=== PATIENT | male | born 1960 | race Caucasian/White ===

== ENCOUNTER 2017-09-22 16:15 | Emergency (ER) | payer OTHER ==
[~2017-09-22] VITALS: Ht 190.5 cm; Wt 97.5 kg
[~2017-09-22 16:15] MED LIST: Bactrim Ds Tab1 EACH PO; Bactroban22 GM TOP; CEPH500 PO; Cipro500 MG PO; Cleocin HCl150 MG PO; Cleocin HCl300 MG PO; Flagyl500 MG PO; GLIM2 PO; GLIM4 PO; METF500 PO; MUPI2TO TOP; Norco 5-325 Ta1 EACH PO; Percocet 5-3251 EACH PO; Zithromax250 MG PO; Zofran4 MG PO
[2017-09-22] MEDS ORDERED: Keflex500 MG PO (18:31)
[2017-09-22] MEDS ORDERED: Bactrim Ds Tab1 EACH PO (18:31)
== END 2017-09-22 18:35 | disposition home or self-care (01) ==
LOC: ER 16:15
DX: L02.31 Cutaneous abscess of buttock (principal); Z88.0 Allergy status to penicillin; Z79.84 Long term (current) use of oral hypoglycemic drugs; Z79.899 Other long term (current) drug therapy; E11.40 Type 2 diabetes mellitus with diabetic neuropathy, unspecified; F17.200 Nicotine dependence, unspecified, uncomplicated
CPT/HCPCS: 10061; 99283

== ENCOUNTER 2017-10-19 15:54 | Emergency (ER) | payer OTHER ==
[~2017-10-19] VITALS: Ht 190.5 cm; Wt 97.5 kg
[~2017-10-19 15:54] MED LIST changes: +Keflex500 MG PO
[2017-10-19] MEDS ORDERED: Valium5 MG PO (16:55)
== END 2017-10-19 17:00 | disposition home or self-care (01) ==
LOC: ER 15:54
DX: M62.830 Muscle spasm of back (principal); Z88.0 Allergy status to penicillin; Z88.8 Allergy status to other drugs, medicaments and biological substances; Z79.84 Long term (current) use of oral hypoglycemic drugs; E11.40 Type 2 diabetes mellitus with diabetic neuropathy, unspecified; F17.210 Nicotine dependence, cigarettes, uncomplicated
CPT/HCPCS: 99283

== ENCOUNTER → 2019-10-04 | Outpatient (CLI) | payer MEDICAID ==
[~2019-10-04] MED LIST changes: +Valium5 MG PO
[2019-10-04 18:36] LABS: Alanine Aminotransfer (ALT/SGP 10 U/L (12-78); Albumin, Blood 3.9 g/dL (3.4-5.0); Albumin/Globulin Ratio 1.1 (0.8-1.8); Alk Phos 52 U/L (40-126); Anion Gap 7 mmol/L (6-16); Aspartate Aminotrans (AST/SGOT 13 U/L (12-37); Bilirubin, Total 0.6 mg/dL (0.1-1.0); Blood Urea Nitrogen 5 mg/dL (8-24); Bun/Creatinine Ratio 6.3 (12.0-20.0); CO2, Blood 26 mmol/L (21-32); Calcium, Blood 8.8 mg/dL (8.5-10.1); Chloride, Blood 105 mmol/L (98-108); Globulin, Blood 3.7 g/dL (2.2-4.0); Glomerular Filtration Rate >60 (60-); Glucose, Blood 199 mg/dL (70-99); Sodium, Blood 138 mmol/L (136-145); Total Protein, Blood 7.6 g/dL (6.4-8.2)
== END | disposition home or self-care (01) ==
LOC: LAB EV 18:20 → LAB SHORT 18:20
PROVIDERS: Physician Assistant
DX: E11.65 Type 2 diabetes mellitus with hyperglycemia (principal)
CPT/HCPCS: 80053; 83036

== ENCOUNTER 2019-12-22 00:49 | Emergency (ER) | payer OTHER ==
[~2019-12-22] VITALS: Ht 188 cm; Wt 86.2 kg
[2019-12-22 02:16] LABS: BASOPHILS ABSOLUTE AUTO 0.06 K/mm3 (0.00-0.23); BASOPHILS PERCENT AUTO 1 % (0-2); EOSINOPHILS ABSOLUTE AUTO 0.09 K/mm3 (0.00-0.68); EOSINOPHILS PERCENT AUTO 1 % (0-6); Hemoglobin 20.5 g/dL (13.5-17.5); IMMATURE GRAN ABSOLUTE AUTO 0.03 K/mm3 (0.00-0.10); IMMATURE GRAN PERCENT AUTO 0 % (0-1); LYMPHOCYTES ABSOLUTE AUTO 1.56 K/mm3 (0.84-5.20); LYMPHOCYTES PERCENT AUTO 16 % (21-46); MONOCYTES ABSOLUTE AUTO 1.02 K/mm3 (0.16-1.47); MONOCYTES PERCENT AUTO 10 % (4-13); Mean Corpuscular HGB Conc 32.8 g/dL (31.5-36.5); Mean Corpuscular Volume 98 fL (80-100); NEUTROPHILS ABSOLUTE AUTO 7.07 K/mm3 (1.96-9.15); NEUTROPHILS PERCENT AUTO 72 % (41-73); RDW Coefficient Variation 13.2 % (11.7-14.2); RDW Standard Deviation 47.8 fL (35.1-46.3); White Blood Cell Count 9.83 K/mm3 (4.00-11.30)
[2019-12-22 02:17] LABS: Hematocrit 62.5 % (37.0-53.0); Mean Platelet Volume 12.4 fL (9.1-12.4); Platelet Count 104 K/mm3 (150-400)
[2019-12-22 02:27] LABS: Alanine Aminotransfer (ALT/SGP 13 U/L (12-78); Albumin, Blood 3.7 g/dL (3.4-5.0); Albumin/Globulin Ratio 0.9 (0.8-1.8); Alk Phos 56 U/L (50-136); Anion Gap 7 mmol/L (6-16); Aspartate Aminotrans (AST/SGOT 18 U/L (12-37); Bilirubin, Total 1.3 mg/dL (0.1-1.0); Blood Urea Nitrogen 7 mg/dL (8-24); Bun/Creatinine Ratio 9.9 (12.0-20.0); CO2, Blood 29 mmol/L (21-32); Calcium, Blood 9.1 mg/dL (8.5-10.1); Chloride, Blood 103 mmol/L (98-108); Creatinine, Blood 0.71 mg/dL (0.60-1.20); Globulin, Blood 4.1 g/dL (2.2-4.0); Glomerular Filtration Rate >60 (60-); Glucose, Blood 109 mg/dL (70-99); Magnesium, Blood 2.1 mg/dL (1.6-2.4); Potassium, Blood 3.9 mmol/L (3.5-5.5); Sodium, Blood 139 mmol/L (136-145); Total Protein, Blood 7.8 g/dL (6.4-8.2)
[2019-12-22] MEDS ORDERED: Cipro500 MG PO (03:26)
[2019-12-22] MEDS ORDERED: Flagyl500 MG PO (03:26)
== END 2019-12-22 04:22 | disposition home or self-care (01) ==
LOC: ER 00:49
PROVIDERS: Emergency Medicine
DX: K57.32 Diverticulitis of large intestine without perforation or abscess without bleeding (principal); K92.1 Melena; E11.40 Type 2 diabetes mellitus with diabetic neuropathy, unspecified; F17.210 Nicotine dependence, cigarettes, uncomplicated; Z79.84 Long term (current) use of oral hypoglycemic drugs
CPT/HCPCS: 36415; 74176; 80053; 83690; 83735; 85025; 96360; 99284-25; A9270; A9270-GY; J7030

== ENCOUNTER 2020-01-08 01:13 | Emergency (ER) | payer OTHER ==
[~2020-01-08] VITALS: Ht 188 cm; Wt 88.5 kg
[2020-01-08 02:40] LABS: BASOPHILS ABSOLUTE AUTO 0.05 K/mm3 (0.00-0.23); BASOPHILS PERCENT AUTO 1 % (0-2); EOSINOPHILS ABSOLUTE AUTO 0.05 K/mm3 (0.00-0.68); EOSINOPHILS PERCENT AUTO 1 % (0-6); Hemoglobin 19.6 g/dL (13.5-17.5); IMMATURE GRAN ABSOLUTE AUTO 0.01 K/mm3 (0.00-0.10); IMMATURE GRAN PERCENT AUTO 0 % (0-1); LYMPHOCYTES PERCENT AUTO 14 % (21-46); MONOCYTES ABSOLUTE AUTO 0.69 K/mm3 (0.16-1.47); MONOCYTES PERCENT AUTO 12 % (4-13); Mean Corpuscular HGB 31.9 pg (26.0-34.0); Mean Corpuscular HGB Conc 32.9 g/dL (31.5-36.5); Mean Corpuscular Volume 97 fL (80-100); NEUTROPHILS ABSOLUTE AUTO 3.97 K/mm3 (1.96-9.15); NEUTROPHILS PERCENT AUTO 71 % (41-73); Platelet Count 152 K/mm3 (150-400); RDW Coefficient Variation 12.4 % (11.7-14.2); RDW Standard Deviation 44.5 fL (35.1-46.3); Red Blood Cell Count 6.14 M/mm3 (4.30-5.90); White Blood Cell Count 5.57 K/mm3 (4.00-11.30)
[2020-01-08 02:42] LABS: Hematocrit 59.6 % (37.0-53.0)
[2020-01-08 03:00] LABS: Alanine Aminotransfer (ALT/SGP 19 U/L (12-78); Albumin, Blood 3.7 g/dL (3.4-5.0); Albumin/Globulin Ratio 0.8 (0.8-1.8); Alk Phos 56 U/L (50-136); Anion Gap 6 mmol/L (6-16); Aspartate Aminotrans (AST/SGOT 22 U/L (12-37); Bilirubin, Total 0.5 mg/dL (0.1-1.0); Blood Urea Nitrogen 8 mg/dL (8-24); Bun/Creatinine Ratio 11.1 (12.0-20.0); CO2, Blood 27 mmol/L (21-32); Calcium, Blood 8.8 mg/dL (8.5-10.1); Chloride, Blood 104 mmol/L (98-108); Creatinine, Blood 0.72 mg/dL (0.60-1.20); Globulin, Blood 4.5 g/dL (2.2-4.0); Glomerular Filtration Rate >60 (60-); Glucose, Blood 212 mg/dL (70-99); Potassium, Blood 4.3 mmol/L (3.5-5.5); Sodium, Blood 137 mmol/L (136-145); Total Protein, Blood 8.2 g/dL (6.4-8.2)
[2020-01-08] MEDS ORDERED: Cipro500 MG PO (03:48)
== END 2020-01-08 03:59 | disposition home or self-care (01) ==
LOC: ER 01:13
PROVIDERS: Emergency Medicine
DX: N30.90 Cystitis, unspecified without hematuria (principal); E11.40 Type 2 diabetes mellitus with diabetic neuropathy, unspecified; F17.210 Nicotine dependence, cigarettes, uncomplicated; Z88.0 Allergy status to penicillin; Z79.84 Long term (current) use of oral hypoglycemic drugs; Z79.2 Long term (current) use of antibiotics; Z79.899 Other long term (current) drug therapy
CPT/HCPCS: 74176; 80053; 85025; 86850; 86900; 86901; 96361; 96374; 96375; 99285-25; J2405; J3010; J7030

== ENCOUNTER 2020-01-30 00:07 | Emergency (ER) | payer OTHER ==
[~2020-01-30] VITALS: Ht 188 cm; Wt 79.4 kg
[2020-01-30 00:59] LABS: BASOPHILS ABSOLUTE AUTO 0.03 K/mm3 (0.00-0.23); BASOPHILS PERCENT AUTO 0 % (0-2); EOSINOPHILS ABSOLUTE AUTO 0.16 K/mm3 (0.00-0.68); EOSINOPHILS PERCENT AUTO 2 % (0-6); Hematocrit 60.4 % (37.0-53.0); Hemoglobin 19.8 g/dL (13.5-17.5); IMMATURE GRAN ABSOLUTE AUTO 0.02 K/mm3 (0.00-0.10); IMMATURE GRAN PERCENT AUTO 0 % (0-1); LYMPHOCYTES ABSOLUTE AUTO 1.43 K/mm3 (0.84-5.20); LYMPHOCYTES PERCENT AUTO 21 % (21-46); MONOCYTES ABSOLUTE AUTO 0.97 K/mm3 (0.16-1.47); MONOCYTES PERCENT AUTO 14 % (4-13); Mean Corpuscular HGB 31.3 pg (26.0-34.0); Mean Corpuscular HGB Conc 32.8 g/dL (31.5-36.5); Mean Corpuscular Volume 96 fL (80-100); Mean Platelet Volume 11.2 fL (9.1-12.4); NEUTROPHILS ABSOLUTE AUTO 4.33 K/mm3 (1.96-9.15); NEUTROPHILS PERCENT AUTO 62 % (41-73); Platelet Count 158 K/mm3 (150-400); RDW Standard Deviation 46.3 fL (35.1-46.3); Red Blood Cell Count 6.32 M/mm3 (4.30-5.90); White Blood Cell Count 6.94 K/mm3 (4.00-11.30)
[2020-01-30 01:14] LABS: Alanine Aminotransfer (ALT/SGP 11 U/L (12-78); Albumin, Blood 3.2 g/dL (3.4-5.0); Albumin/Globulin Ratio 0.7 (0.8-1.8); Alk Phos 55 U/L (50-136); Anion Gap 3 mmol/L (6-16); Aspartate Aminotrans (AST/SGOT 13 U/L (12-37); Bilirubin, Total 0.6 mg/dL (0.1-1.0); Blood Urea Nitrogen 6 mg/dL (8-24); Bun/Creatinine Ratio 8.5 (12.0-20.0); CO2, Blood 30 mmol/L (21-32); Calcium, Blood 8.9 mg/dL (8.5-10.1); Chloride, Blood 106 mmol/L (98-108); Creatinine, Blood 0.71 mg/dL (0.60-1.20); Globulin, Blood 4.5 g/dL (2.2-4.0); Glomerular Filtration Rate >60 (60-); Glucose, Blood 217 mg/dL (70-99); Potassium, Blood 4.2 mmol/L (3.5-5.5); Sodium, Blood 139 mmol/L (136-145); Total Protein, Blood 7.7 g/dL (6.4-8.2)
[2020-01-30] MEDS ORDERED: Cipro500 MG PO (01:59)
[2020-01-30] MEDS ORDERED: Flagyl500 MG PO (01:59)
[2020-01-30 02:02] LABS: Source, Urine Clean Catch
[2020-01-30 02:05] LABS: Appearance, Urine Clear (Clear); Bilirubin, Urine Neg (Neg); Blood, Urine 1+ (Neg); Color, Urine Amber (P-Yellow); Glucose Qualitative, Urine Neg (Neg); Ketones, Urine Neg (Neg); Leukocyte Esterase, Urine 1+ (Neg); Nitrite, Urine Neg (Neg); Protein, Urine 1+ (Neg); Specific Gravity, Urine 1.015 (1.003-1.022); Urobilinogen, Urine NORM (Normal); pH, Urine 6.5 (5.0-8.0)
[2020-01-30 02:11] LABS: Bacteria Mod /hpf; Red Blood Cells, Urine 0-2 /hpf (0-2); Squamous Epithelial Cells Rare /hpf (Few); White Blood Cells, Urine 0-2 /hpf (0-5)
== END 2020-01-30 02:14 | disposition home or self-care (01) ==
LOC: ER 00:07
PROVIDERS: Emergency Medicine
DX: K57.92 Diverticulitis of intestine, part unspecified, without perforation or abscess without bleeding (principal); E11.40 Type 2 diabetes mellitus with diabetic neuropathy, unspecified; F17.210 Nicotine dependence, cigarettes, uncomplicated; Z88.0 Allergy status to penicillin; Z79.84 Long term (current) use of oral hypoglycemic drugs
CPT/HCPCS: 36415; 80053; 81001; 83690; 85025; 87086; 93005; 93010; 96374; 99284-25; A9270-GY; J2405

== ENCOUNTER 2020-02-10 00:51 | Emergency (ER) | payer OTHER ==
[~2020-02-10] VITALS: Ht 188 cm; Wt 81.7 kg
[2020-02-10] MEDS ORDERED: Bactrim Ds Tab1 EACH PO (02:32)
[2020-02-13] MEDS ORDERED: Vibramycin100 MG PO (02:45)
== END 2020-02-10 02:42 | disposition home or self-care (01) ==
LOC: ER 00:51
DX: L03.317 Cellulitis of buttock (principal); Z88.0 Allergy status to penicillin; Z79.84 Long term (current) use of oral hypoglycemic drugs; Z79.899 Other long term (current) drug therapy; E11.40 Type 2 diabetes mellitus with diabetic neuropathy, unspecified; I10 Essential (primary) hypertension; F17.210 Nicotine dependence, cigarettes, uncomplicated
CPT/HCPCS: 99282; A9270-GY

== ENCOUNTER → 2020-02-15 | Outpatient (CLI) | payer OTHER ==
[~2020-02-15] MED LIST changes: +GLIM4; +ONDA4ODT MM; +Vibramycin100 MG PO
== END | disposition home or self-care (01) ==
LOC: LAB 18:59 → LAB SHORT 18:59
DX: L72.9 Follicular cyst of the skin and subcutaneous tissue, unspecified (principal)
CPT/HCPCS: 87070; 87075; 87077; 87147; 87186; 87205

== ENCOUNTER 2020-03-05 10:18 | Day surgery (SDC) | payer OTHER ==
[~2020-03-05] VITALS: Ht 188 cm; Wt 78.7 kg
[~2020-03-05 10:18] MED LIST changes: -GLIM4
[2020-03-05] MEDS ORDERED: GLIM4 (10:53)
--- NOTE | 2020-03-05 12:21 | NUR ---
03/05/20 1221 Ivet Rankin PT'S PROCEDURE CX BY DR. RING; PT HAD DIVERTICULITIS 5 DAYS AGO. PT WALKED OUT AT 1220
== END 2020-03-05 12:20 | disposition home or self-care (01) ==
LOC: ORSCSDS 10:18
DX: K57.32 Diverticulitis of large intestine without perforation or abscess without bleeding (principal); Z53.9 Procedure and treatment not carried out, unspecified reason
CPT/HCPCS: 82947

== ENCOUNTER 2020-05-17 03:29 | Inpatient (IN) | payer OTHER ==
[~2020-05-17] VITALS: Ht 188 cm; Wt 82.1 kg
[~2020-05-17 03:29] MED LIST changes: +GLIM4
[2020-05-17 05:05] LABS: Source, Urine Clean Catch
[2020-05-17 05:08] LABS: Appearance, Urine Clear (Clear); Bilirubin, Urine Neg (Neg); Blood, Urine 1+ (Neg); Color, Urine Amber (P-Yellow); Glucose Qualitative, Urine Neg (Neg); Ketones, Urine 1+ (Neg); Leukocyte Esterase, Urine 1+ (Neg); Nitrite, Urine Neg (Neg); Protein, Urine 3+ (Neg); Urobilinogen, Urine 2+ (Normal)
[2020-05-17 05:13] LABS: Bacteria Few /hpf; Red Blood Cells, Urine 0-2 /hpf (0-2); Squamous Epithelial Cells Few /hpf (Few); White Blood Cells, Urine 0-2 /hpf (0-5)
[2020-05-17 05:15] LABS: BASOPHILS ABSOLUTE AUTO 0.03 K/mm3 (0.00-0.23); BASOPHILS PERCENT AUTO 1 % (0-2); EOSINOPHILS PERCENT AUTO 0 % (0-6); Hematocrit 56.4 % (37.0-53.0); Hemoglobin 18.6 g/dL (13.5-17.5); IMMATURE GRAN ABSOLUTE AUTO 0.01 K/mm3 (0.00-0.10); IMMATURE GRAN PERCENT AUTO 0 % (0-1); LYMPHOCYTES ABSOLUTE AUTO 0.17 K/mm3 (0.84-5.20); LYMPHOCYTES PERCENT AUTO 3 % (21-46); MONOCYTES ABSOLUTE AUTO 0.43 K/mm3 (0.16-1.47); MONOCYTES PERCENT AUTO 8 % (4-13); Mean Corpuscular HGB 30.6 pg (26.0-34.0); Mean Corpuscular Volume 93 fL (80-100); Mean Platelet Volume 10.5 fL (9.1-12.4); NEUTROPHILS ABSOLUTE AUTO 4.77 K/mm3 (1.96-9.15); NEUTROPHILS PERCENT AUTO 88 % (41-73); Platelet Count 143 K/mm3 (150-400); RDW Coefficient Variation 14.4 % (11.7-14.2); RDW Standard Deviation 49.6 fL (35.1-46.3); Red Blood Cell Count 6.08 M/mm3 (4.30-5.90); White Blood Cell Count 5.41 K/mm3 (4.00-11.30)
[2020-05-17 05:43] LABS: Alanine Aminotransfer (ALT/SGP 7 U/L (12-78); Albumin/Globulin Ratio 0.7 (0.8-1.8); Alk Phos 55 U/L (50-136); Anion Gap 7 mmol/L (6-16); Aspartate Aminotrans (AST/SGOT 15 U/L (12-37); Blood Urea Nitrogen 6 mg/dL (8-24); Bun/Creatinine Ratio 10.3 (12.0-20.0); CO2, Blood 22 mmol/L (21-32); Calcium, Blood 8.2 mg/dL (8.5-10.1); Chloride, Blood 107 mmol/L (98-108); Creatinine, Blood 0.58 mg/dL (0.60-1.20); Globulin, Blood 4.2 g/dL (2.2-4.0); Glomerular Filtration Rate >60 (60-); Glucose, Blood 221 mg/dL (70-99); Magnesium, Blood 1.8 mg/dL (1.6-2.4); Potassium, Blood 3.9 mmol/L (3.5-5.5); Sodium, Blood 136 mmol/L (136-145); Total Protein, Blood 7.2 g/dL (6.4-8.2); Troponin I <0.015 ng/mL (0.000-0.040)
[2020-05-17 05:59] LABS: Ethanol (Alcohol), Blood, Med <3 mg/dL
[2020-05-17] MEDS ORDERED: METF500 PO (06:21)
[2020-05-17] MEDS ORDERED: GLIM4 PO (06:22)
[2020-05-17] MEDS ORDERED: PIOG15 PO (06:23)
[2020-05-17 09:14] LABS: Influenza A Negative (NEGATIVE); Influenza B Negative (NEGATIVE)
[2020-05-17] MEDS ORDERED: ELDERBERRY PO (09:45)
[2020-05-17] MEDS ORDERED: [UNRECOGNIZED DRUG - OTHER] PO (09:45)
[2020-05-17] MEDS ORDERED: TUMERIC (09:46)
--- NOTE | 2020-05-17 11:21 | NUR ---
05/17/20 TOXIN URINE SENT MRI SCREEN DONE LOVENOX GIVEN AFTER CONSULTING DR CONRAD
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
[2020-05-17 12:03] LABS: U Amphetamine Screen Not Detected
[2020-05-17 12:04] LABS: U Barbituate Screen Not Detected; U Benzodiazapine Screen Not Detected; U Buprenorphine Screen Not Detected; U Cannabinoids Screen DETECTED; U Cocaine Screen Not Detected; U Methadone Screen Not Detected; U Methamphetamine Screen Not Detected; U Opiates Screen Not Detected; U Oxycodone Screen Not Detected; U Phencyclidine Screen Not Detected; U Propoxyphene Screen Not Detected
--- NOTE | 2020-05-17 13:42 | NUR ---
05/17/20 1330 MRI MACHINE OUT OF ORDERS DR LOPEZ
--- NOTE | 2020-05-17 14:17 | NUR ---
PT DOES EVEN KNOW TAHT HE PULLED THEM OUT AND BLOOD JUST GOES EVERY WHERE
--- NOTE | 2020-05-17 14:26 | NUR ---
FOUND ABRASION UNDER A COBAN SO I PLACE A MEPILEX ON IT LEFT FOREARM.
--- NOTE | 2020-05-17 16:20 | NUR ---
ASSUMED CARE TOOK OVER CARE OF THE PT, REPORT TAKEN FROM SHANEKA MATTHEWS, CARE ROUNDED ON THE PT, THE PT AT THIS TIME IS A/OX3, TAKEN TO MRI FOR SCAN
--- NOTE | 2020-05-17 18:31 | NUR ---
PT IS A/OX3, PLEASANT AND COOPERATIVE AT THIS TIME, APPEARS TO BE BREATHING EASILY ON RA AT THIS TIME, TEMP RECHECKED AT 99.8 AT THIS TIME, THE PT REPORTS FEELING COLD AND WEAK, PT DENIES ANY PAIN, CALL LIGHT IN REACH, NO OTHER CHANGES NOTICED AT THIS TIME
--- NOTE | 2020-05-18 05:05 | NUR ---
SHIFT SUMMARY PT HAS RESTED MOST OF THE NIGHT AND HAS DENIED NEEDS WHEN ASKED. PT HAS HAD LOW GRADE TEMPERATURE THAT HAS TRENDED DOWN DURING HIS ADMISSION. MEDICIATED FOR FEVER X1 THIS SHIFT. PT HAS BEEN INCONTINENT OF URINE THIS SHIFT AND HAS HAD ONE BOWEL MOVEMENT. SOME NAUSEA THIS SHIFT THAT WAS RELIEVED WITH TYLENOL. PT DENIES DIZZINESS, SOB, COUGH OR PAIN. ASIDE FROM LOW GRADE TEMP VITALS HAVE BEEN STABLE AND HR STABLE ON TELE. NO ACUTE CHANGES OVERNIGHT. BED IN LOWEST POSITION, CALL LIGHT WITHIN REACH. WILL CONTINUE TO MONITOR AND REPORT TO ONCOMING RN.
[2020-05-18 05:09] LABS: BASOPHILS ABSOLUTE AUTO 0.03 K/mm3 (0.00-0.23); BASOPHILS PERCENT AUTO 1 % (0-2); EOSINOPHILS PERCENT AUTO 0 % (0-6); Hematocrit 51.5 % (37.0-53.0); IMMATURE GRAN ABSOLUTE AUTO 0.02 K/mm3 (0.00-0.10); IMMATURE GRAN PERCENT AUTO 0 % (0-1); LYMPHOCYTES ABSOLUTE AUTO 0.36 K/mm3 (0.84-5.20); LYMPHOCYTES PERCENT AUTO 6 % (21-46); MONOCYTES ABSOLUTE AUTO 0.56 K/mm3 (0.16-1.47); MONOCYTES PERCENT AUTO 9 % (4-13); Mean Corpuscular HGB 30.6 pg (26.0-34.0); Mean Corpuscular Volume 93 fL (80-100); NEUTROPHILS ABSOLUTE AUTO 5.24 K/mm3 (1.96-9.15); NEUTROPHILS PERCENT AUTO 84 % (41-73); RDW Standard Deviation 48.5 fL (35.1-46.3); Red Blood Cell Count 5.55 M/mm3 (4.30-5.90); White Blood Cell Count 6.21 K/mm3 (4.00-11.30)
[2020-05-18 05:22] LABS: Alanine Aminotransfer (ALT/SGP 18 U/L (12-78); Albumin, Blood 2.4 g/dL (3.4-5.0); Albumin/Globulin Ratio 0.6 (0.8-1.8); Alk Phos 49 U/L (50-136); Anion Gap 5 mmol/L (6-16); Aspartate Aminotrans (AST/SGOT 50 U/L (12-37); Bilirubin, Total 0.7 mg/dL (0.1-1.0); Blood Urea Nitrogen 9 mg/dL (8-24); Bun/Creatinine Ratio 12.2 (12.0-20.0); CO2, Blood 26 mmol/L (21-32); Calcium, Blood 7.8 mg/dL (8.5-10.1); Chloride, Blood 106 mmol/L (98-108); Creatinine, Blood 0.74 mg/dL (0.60-1.20); Globulin, Blood 3.7 g/dL (2.2-4.0); Glomerular Filtration Rate >60 (60-); Glucose, Blood 65 mg/dL (70-99); Potassium, Blood 3.2 mmol/L (3.5-5.5); Sodium, Blood 137 mmol/L (136-145); Total Protein, Blood 6.1 g/dL (6.4-8.2)
[2020-05-18 05:48] LABS: Platelet Count 86 K/mm3 (150-400)
--- NOTE | 2020-05-18 13:28 | NUR ---
HE HAS DENIED ANY CP, DIZZINESS, PAIN OR SOB. HE IS UP AD EFRNANDO IN THE ROOM TO GO TO THE BATHROOM. HIS BALANCE IS SLIGHTLY OFF INTERMITTENTLY. HE EATS WELL. TELE NSR. PT KELLI JUST DONE. HE WILL NOT NEED POST DISCHARGE THERAPY. GLUCOSE ON AM LABS 65. CBG ORDERS RECEIVED. CBG [facility]. IVF'S FINISHED ABOUT 0730 THIS MORNING. NO TELE EVENTS. PATIENT WITHOUT COMPLAINTS.
--- NOTE | 2020-05-18 16:51 | NUR ---
HE IS WATCHING FOOTBALL. HE HAS HAD NO COMPLAINTS. HIS AM GLUCOSE AND HIS LUNCH AND DINNER CBG HAVE ALL BEEN IN THE 60'S. HE IS ASYMPTOMATIC. TELE NSR IN THE 60'S. BLD CULTURES NO GROWTH SO FAR. AFEBRILE. VSS. EATS AND DRINKS WELL. UP AD FERNANDO TO THE BATHROOM. PHYSICAL THERAPY EVALUATED HIM. THEY WALKED THE KEANE TOGETHER. BALANCE MINIMALLY ABNORMAL MAYBE D/T ARTHRITIS IN HIS KNEES. NO NEED FOR PT WHEN HE IS DISCHARGED. I JUST UPDATED ON HIS CBG RESULTS SO FAR TODAY.
--- NOTE | 2020-05-19 15:27 | NUR ---
PATIENT DISCHARGE: PATIENT DISCHARGED TO HOME THIS SHIFT. MEDICATION RECONCILIATION COMPLETED; NO MEDS TO REPORT. DISCHARGE EDUCATION COMPLETED WITH PATIENT. PATIENT TRANSPORTED TO EXIT BY [facility] WITH WHEELCHAIR AT 1458. PATIENT DEPARTED [facility] VIA TAXI.
[2020-05-20] MEDS ORDERED: GLIMEPIRIDE4 MG PO (02:02)
[2020-05-20] MEDS ORDERED: GLUCOPHAGE1000 M2 PO (02:02)
== END 2020-05-19 14:58 | disposition home or self-care (01) | DRG 637 ==
LOC: ER 03:29 → MEDS 03:30 → ENPENDDIS 05-19 11:42 → MEDS 05-19 14:58
PROVIDERS: Emergency Medicine; Internal Medicine; ADMIT Internal Medicine
DX: E11.649 Type 2 diabetes mellitus with hypoglycemia without coma (principal); G93.41 Metabolic encephalopathy; E87.2 Acidosis; E11.40 Type 2 diabetes mellitus with diabetic neuropathy, unspecified; G45.9 Transient cerebral ischemic attack, unspecified; Z20.828 Contact with and (suspected) exposure to other viral communicable diseases; F17.210 Nicotine dependence, cigarettes, uncomplicated
CPT/HCPCS: 36415; 70450; 70553; 71045; 72125; 80053; 81001; 82947; 83036; 83605; 83690; 83735; 83880; 84145; 84484; 85025; 87040; 87086; 87804; 93005; 93010; 96361; 96365; 96366; 96372; 96375; 96376; 97110; 97116; 97161; 99285-25; A9270; A9270-GY; A9579; G0378; G0480; J0696; J1650; J2405; J3370; J7030; J7050; U0003

== ENCOUNTER 2020-09-04 16:16 | Inpatient (IN) | payer OTHER ==
[~2020-09-04] VITALS: Ht 188 cm; Wt 71.9 kg
[~2020-09-04 16:16] MED LIST changes: +ELDERBERRY PO; +GLIMEPIRIDE4 MG PO; +GLUCOPHAGE1000 M2 PO; +PIOG15 PO; +TUMERIC; +[UNRECOGNIZED DRUG - OTHER] PO
[2020-09-04 17:28] LABS: Hematocrit 43.7 % (37.0-53.0); Hemoglobin 14.4 g/dL (13.5-17.5); Mean Corpuscular HGB 28.9 pg (26.0-34.0); Mean Corpuscular Volume 88 fL (80-100); Mean Platelet Volume 12.5 fL (9.1-12.4); Platelet Count 105 K/mm3 (150-400); RDW Coefficient Variation 13.3 % (11.7-14.2); RDW Standard Deviation 43.2 fL (35.1-46.3); Red Blood Cell Count 4.98 M/mm3 (4.30-5.90); White Blood Cell Count 13.74 K/mm3 (4.00-11.30)
[2020-09-04 17:52] LABS: Alanine Aminotransfer (ALT/SGP 25 U/L (12-78); Albumin, Blood 2.9 g/dL (3.4-5.0); Albumin/Globulin Ratio 0.6 (0.8-1.8); Alk Phos 74 U/L (50-136); Anion Gap 19 mmol/L (6-16); Aspartate Aminotrans (AST/SGOT 27 U/L (12-37); Bilirubin, Total 1.2 mg/dL (0.1-1.0); Blood Urea Nitrogen 34 mg/dL (8-24); Bun/Creatinine Ratio 37.6 (12.0-20.0); CO2, Blood 17 mmol/L (21-32); Calcium, Blood 8.9 mg/dL (8.5-10.1); Chloride, Blood 91 mmol/L (98-108); Creatinine, Blood 0.91 mg/dL (0.60-1.20); Globulin, Blood 4.8 g/dL (2.2-4.0); Glomerular Filtration Rate >60 (60-); Glucose, Blood 544 mg/dL (70-99); Potassium, Blood 4.4 mmol/L (3.5-5.5); Sodium, Blood 127 mmol/L (136-145); Total Protein, Blood 7.7 g/dL (6.4-8.2)
[2020-09-04 17:57] LABS: BAND PERCENT MAN 9 % (0-8); BASOPHILS PERCENT MAN 0 % (0-2); EOSINOPHILS PERCENT MAN 0 % (0-6); LYMPHOCYTES ABSOLUTE MAN 0.41 K/mm3 (0.84-5.20); LYMPHOCYTES PERCENT MAN 3 % (21-46); MONOCYTES ABSOLUTE MAN 0.54 K/mm3 (0.16-1.47); MONOCYTES PERCENT MAN 4 % (4-13); NEUTROPHILS ABSOLUTE MAN 12.77 K/mm3 (1.96-9.15); SEG NEUTROPHILS PERCENT MAN 84 % (41-73); TOTAL CELLS COUNTED 100
[2020-09-04 19:45] LABS: Source, Urine Clean Catch
[2020-09-04 19:50] LABS: Appearance, Urine Clear (Clear); Bilirubin, Urine Neg (Neg); Blood, Urine 4+ (Neg); Color, Urine Yellow (P-Yellow); Glucose Qualitative, Urine 4+ (Neg); Ketones, Urine 4+ (Neg); Leukocyte Esterase, Urine Neg (Neg); Nitrite, Urine Neg (Neg); Protein, Urine 2+ (Neg); Specific Gravity, Urine 1.015 (1.003-1.022); Urobilinogen, Urine NORM (Normal)
[2020-09-04 20:02] LABS: Amorphous Light (0-Heavy); Bacteria Few /hpf; Squamous Epithelial Cells Few /hpf (Few); White Blood Cells, Urine Rare /hpf (0-5)
[2020-09-04] MEDS ORDERED: PIOGLITAZONE HC15 MG PO (20:37)
[2020-09-04 21:04] LABS: Base Excess Venous -10.3 mmol/L; Bicarbonate Venous 17.2 mmol/L (24.0-30.0); PCO2 Venous 29.9 mmHg (38-42); PO2 Venous 71.3 mmHg (38-42); pH Blood Venous 7.33 (7.34-7.37)
--- NOTE | 2020-09-05 00:26 | NUR ---
PT TO ICU 10 VIA ED [place] WITH ED RN @ 2300. PT ALERT AND ORIENTED TO SELF, EVENT, LOCATION, AND FOLLOWING DIRECTIONS. PT DENIES PAIN. O2 SATURATIONS> 90% ON RA, MONITOR SHOWS SINUS RHYTHM WITH HR 90'S, BP STABLE. PT STS HE HAS NOT HAD A BM FOR APPROX 1 WEEK AND HAS BEEN HAVING ISSUES WITH DIARRHEA AND REPORTS SOME INCONTINENCE AT HOME. PT DENIES NAUSEA, NO TENDERNESS WITH ABD PALPATION. PT CACHETIC AND STS HE HAS HAD INCREASED WEAKNESS AND FALLS AT HOME, STS HE HAS LOST OVER 30lbs SINCE HIS D/C IN MAY 2020. SKIN IS DRY AND COOL, SOME REDNESS NOTED TO THE L SIDE ELBOW, HIP AND BUTTOCK BUT IS OVERALL INTACT. UPON ARRIVAL FROM ED, LR WIDE OPEN INFUSING TO LAC IV AND INSULIN GTT @ 6.4 TO RAC IV. SEE FLOWSHEET FOR INSULIN GTT TITRATIONS. PT STS HE TAKES NO HOME MEDICATIONS AND HAS NOT CHECK HIS CBG SINCE HIS D/C IN MAY. PTS FIRST FOLLOW UP APPOINTMENT WITH PCP WAS 09/04/20 AT WHICH TIME HE WAS REFERRED TO THE ED FOR ADMISSION TO THE HOSPITAL FOR POSSIBLE DIVERTICULITIS. PT STS HE LIVES IN A HOUSE WITH TWO ROOMMATES WHO HAVE BEEN HAVING TO HELP HIM MORE WITH ADL'S.
[2020-09-05 03:54] LABS: Anion Gap 7 mmol/L (6-16); Blood Urea Nitrogen 28 mg/dL (8-24); Bun/Creatinine Ratio 41.9 (12.0-20.0); CO2, Blood 29 mmol/L (21-32); Calcium, Blood 8.6 mg/dL (8.5-10.1); Chloride, Blood 100 mmol/L (98-108); Creatinine, Blood 0.67 mg/dL (0.60-1.20); Glomerular Filtration Rate >60 (60-); Glucose, Blood 247 mg/dL (70-99); Potassium, Blood 3.4 mmol/L (3.5-5.5); Sodium, Blood 136 mmol/L (136-145)
--- NOTE | 2020-09-05 06:31 | NUR ---
SHIFT SUMMARY PT SLEPT THROUGHOUT SHIFT, REMAINS AROUSABLE, ORIENTED x4, SLOW TO RESPOND. TMAX THIS SHIFT 102.1, FAN AT BEDSIDE, COMFORTER REMOVED AND PRN TYLENOL ADMINISTERED. O2 SATURATIONS> 90% ON RA, MONITOR SHOWS SINUS RHYTHM WITH HR 90'S-120, BREIF 5 BEAT RUN OF VTACH- SELF LIMITING, BP STABLE. PT REMAINS VERY WEAK, INCONTINENT OF URINE WHILE SLEEPING, ATTENDS IN PLACE. MORNING LAB RESULTS CALLED TO DR ALLEN, NEW ORDERS FOR D5 1/2 NS AND KCL. INSULIN GTT CONTINUES TO INFUSE @ 7u/hr. PT DENIES NAUSEA, TOLERATES PO FLUIDS. CALL LIGHT WITHIN REACH.
--- NOTE | 2020-09-05 07:30 | NUR ---
ASSUMED CARE BEDSIDE REPORT RECIEVED. PT IS LAYING IN BED RESTING QUIETLY. PT AWAKENS EASILY TO VERBAL STIMULI. PT IS ALERT, ORIENTED, AND DROWSEY. PT IS FORGETFUL AT TIMES, OTHERWISE ANSWERS QUESTIONS APPROPRIATELY. VITAL SIGNS STABLE. PT ON ROOM AIR. INSULIN GTT INFUSING AT 6.5 UNITS/HR AND D5 1/2 NS AT 150 ML/HR. PT WITH ATTENDS IN PLACE. WILL CONTINUE TO MONITOR.
[2020-09-05 13:03] LABS: Hematocrit 39.4 % (37.0-53.0); Hemoglobin 13.4 g/dL (13.5-17.5); Mean Corpuscular HGB 29.9 pg (26.0-34.0); Mean Corpuscular Volume 88 fL (80-100); Platelet Count 111 K/mm3 (150-400); RDW Coefficient Variation 13.7 % (11.7-14.2); RDW Standard Deviation 43.9 fL (35.1-46.3); Red Blood Cell Count 4.48 M/mm3 (4.30-5.90); White Blood Cell Count 13.01 K/mm3 (4.00-11.30)
[2020-09-05 13:07] LABS: Mean Platelet Volume 13.2 fL (9.1-12.4)
[2020-09-05 13:48] LABS: BAND PERCENT MAN 2 % (0-8); BASOPHILS PERCENT MAN 0 % (0-2); EOSINOPHILS PERCENT MAN 0 % (0-6); LYMPHOCYTES ABSOLUTE MAN 0.26 K/mm3 (0.84-5.20); LYMPHOCYTES PERCENT MAN 2 % (21-46); MONOCYTES ABSOLUTE MAN 0.52 K/mm3 (0.16-1.47); MONOCYTES PERCENT MAN 4 % (4-13); NEUTROPHILS ABSOLUTE MAN 12.22 K/mm3 (1.96-9.15); SEG NEUTROPHILS PERCENT MAN 92 % (41-73); TOTAL CELLS COUNTED 100
--- NOTE | 2020-09-05 14:35 | NUR ---
TRANSFER TO MEDICAL REPORT CALLED VIA PHONE. ALL QUESTIONS ANSWERED. PT TAKEN TO ROOM 360 VIA BED WITH INSIDE METER TESTER. ALL PT MEDS AND BELONGINGS TAKEN WITH PT.
--- NOTE | 2020-09-05 14:42 | NUR ---
Upon receiving an admit trigger, I visit patient in ICU-10. Patient is resting and awakens to the sound of his name. Patient looks at me but does not speak but moans a bit. I ask patient several questions with the same response. I then ask patient if I could say a prayer for him and patient whispers, "Yes." I gladly provide prayer. Patient opens his eyes at the conclusion of the prayer but does not respond again. I let patient return to resting.
--- NOTE | 2020-09-05 18:46 | NUR ---
at baseline, responds to verbal stimuli, repositioned in bed, call light in reach, cbg done, rm air, saline locked, will continue to monitor and treat until share bsr with noc nurse and pt
--- NOTE | 2020-09-05 19:24 | NUR ---
recvd report from previous shift RN Jaime. pt sleeping in bed, call light within reach, bed in lowest position, bed rails up x 2.
--- NOTE | 2020-09-05 23:30 | NUR ---
PT awoke with diaphorese of forehead, stiffness/soreness of joints, coughing moderate amount of mucus. pt told this RN he felt he was hallucinating. Pt a/o x 4 at this time. This RN answered pt's questions about plan for GI evaluation. This RN read to pt hospitalist recommendation for outpatien eval/tx. Pt concerned about his productive cough. This RN will relay in morning report for day shift RN to notify hospitalist of pt's concern.
--- NOTE | 2020-09-06 05:27 | NUR ---
shift summary: vss, no acute changes. pt is a/o x 4 following some confusion at the beginning of shift. pt states he felt he had "been hallucinating". pt reports generalized soreness/stiffness/pain. nursing staff assisted pt with repositioning due to difficulty moving. analgesia per mar administered with some relief. pt appears to be sleeping upon 0400 nurse rounding. pt tolerated po fluids, but reports no appetite. attends change x 1 with one void in urinal.
[2020-09-06 13:06] LABS: U Amphetamine Screen Not Detected; U Barbituate Screen Not Detected; U Benzodiazapine Screen Not Detected; U Buprenorphine Screen Not Detected; U Cannabinoids Screen DETECTED; U Cocaine Screen Not Detected; U Methadone Screen Not Detected; U Methamphetamine Screen Not Detected; U Opiates Screen DETECTED; U Oxycodone Screen Not Detected; U Phencyclidine Screen Not Detected; U Propoxyphene Screen Not Detected
[2020-09-06 13:41] LABS: Adenovirus Not Detected (NOT DETECT); Coronavirus 229E Not Detected (NOT DETECT); Coronavirus HKU1 Not Detected (NOT DETECT); Coronavirus NL63 Not Detected (NOT DETECT)
[2020-09-06 13:42] LABS: Bordetella pertussis Not Detected (NOT DETECT); Chlamydophila pneumoniae Not Detected (NOT DETECT); Coronavirus OC43 Not Detected (NOT DETECT); Human Metapneumovirus Not Detected (NOT DETECT); Human Rhinovirus/Enterovirus Not Detected (NOT DETECT); Influenza A/2009-H1 Not Detected (NOT DETECT); Influenza A/H1 Not Detected (NOT DETECT); Influenza A/H3 Not Detected (NOT DETECT); Influenza B Not Detected (NOT DETECT); Mycoplasma pneumoniae Not Detected (NOT DETECT); Parainfluenza Virus 1 Not Detected (NOT DETECT); Parainfluenza Virus 2 Not Detected (NOT DETECT); Parainfluenza Virus 3 Not Detected (NOT DETECT); Parainfluenza Virus 4 Not Detected (NOT DETECT); Respiratory Syncytial Virus Not Detected (NOT DETECT); SARS-Cov-2 (COVID-19), BioFire Not Detected (NOT DETECT)
--- NOTE | 2020-09-06 16:22 | NUR ---
SUMMARY PT HAS BEEN WEAK/FATIGUED, LETHARGIC T/O DAY. THIS AM SOMEWHAT CONFUSED, FORGETFUL, VERY FATIGUED, DIFFICULT TO AROUSE & KEEP AWAKE. HR TACHY 110'S, TEMP 102.4. TYLENOL GIVEN. DR NOYOLA NOTIFIED, PLACE ORDERS FOR UTOX & RESP PANEL, COLLECTED/SENT. LAB REPORT COVID19 NEGATIVE. URINE POSITIVE FOR CANNABIS. THIS AFTERNOON MENTATION HAS IMPROVED SOMEWHAT, PT STATE CONTINUING WEAKNESS, STATES WAS ABLE TO AMBULATE PRIOR TO ADMISSION. LOW GRADE TEMP 100.9, TYLENOL GIVEN. PT HAS HAD DIFFICULTY WHEN SWALLOWING THIN LIQUIDS, COUGHING SOMEWHAT, HAVE THICKENED ALL LIQUIDS TODAY.
[2020-09-06 17:37] LABS: Hematocrit 37.6 % (37.0-53.0); Hemoglobin 12.9 g/dL (13.5-17.5); Mean Corpuscular HGB 29.8 pg (26.0-34.0); Mean Corpuscular HGB Conc 34.3 g/dL (31.5-36.5); Mean Corpuscular Volume 87 fL (80-100); Mean Platelet Volume 13.9 fL (9.1-12.4); Platelet Count 97 K/mm3 (150-400); RDW Coefficient Variation 13.9 % (11.7-14.2); RDW Standard Deviation 44.5 fL (35.1-46.3); Red Blood Cell Count 4.33 M/mm3 (4.30-5.90); White Blood Cell Count 12.79 K/mm3 (4.00-11.30)
[2020-09-06 17:45] LABS: Alanine Aminotransfer (ALT/SGP 44 U/L (12-78); Albumin, Blood 2.2 g/dL (3.4-5.0); Albumin/Globulin Ratio 0.5 (0.8-1.8); Alk Phos 80 U/L (50-136); Anion Gap 9 mmol/L (6-16); Aspartate Aminotrans (AST/SGOT 76 U/L (12-37); Bilirubin, Total 1.7 mg/dL (0.1-1.0); Blood Urea Nitrogen 27 mg/dL (8-24); Bun/Creatinine Ratio 34.2 (12.0-20.0); CO2, Blood 24 mmol/L (21-32); Calcium, Blood 8.6 mg/dL (8.5-10.1); Chloride, Blood 104 mmol/L (98-108); Creatinine, Blood 0.79 mg/dL (0.60-1.20); Globulin, Blood 4.5 g/dL (2.2-4.0); Glomerular Filtration Rate >60 (60-); Glucose, Blood 259 mg/dL (70-99); Potassium, Blood 3.5 mmol/L (3.5-5.5); Sodium, Blood 137 mmol/L (136-145); Total Protein, Blood 6.7 g/dL (6.4-8.2)
--- NOTE | 2020-09-07 06:15 | NUR ---
SHIFT SUMMARY- PT. ALERT TO SELF, LETHARGIC LAST NIGHT. SLEPT MOST OF THE NIGHT, NO APPARENT DISTRESS NOTED. TEMP WNL AND OTHER VITALS STABLE THIS SHIFT. RECEIVED NOTIFICATION OF POSITIVE BC'S. NOTIFIED HOSPITALIST DR. ALLEN. RECEIVED ORDER TO START PT. ON VANCO AND DC'D ROCEPHIN. ADMINISTERED PER EMAR, PT. TOLERATED WELL. CALL LIGHT WITHIN REACH, SIDE RAILS UPX2, AND BED ALARM ON FOR SAFETY. WILL CONT TO MONITOR.
[2020-09-07 09:16] LABS: Hematocrit 36.4 % (37.0-53.0); Hemoglobin 12.2 g/dL (13.5-17.5); Mean Corpuscular HGB 29.6 pg (26.0-34.0); Mean Corpuscular HGB Conc 33.5 g/dL (31.5-36.5); Mean Corpuscular Volume 88 fL (80-100); Platelet Count 87 K/mm3 (150-400); RDW Coefficient Variation 14.2 % (11.7-14.2); RDW Standard Deviation 45.8 fL (35.1-46.3); Red Blood Cell Count 4.12 M/mm3 (4.30-5.90); White Blood Cell Count 12.97 K/mm3 (4.00-11.30)
[2020-09-07 09:23] LABS: Anion Gap 9 mmol/L (6-16); Blood Urea Nitrogen 31 mg/dL (8-24); Bun/Creatinine Ratio 37.9 (12.0-20.0); CO2, Blood 24 mmol/L (21-32); Calcium, Blood 8.2 mg/dL (8.5-10.1); Chloride, Blood 108 mmol/L (98-108); Creatinine, Blood 0.82 mg/dL (0.60-1.20); Glomerular Filtration Rate >60 (60-); Glucose, Blood 186 mg/dL (70-99); Potassium, Blood 3.6 mmol/L (3.5-5.5); Sodium, Blood 141 mmol/L (136-145)
[2020-09-07 09:31] LABS: BAND PERCENT MAN 10 % (0-8); BASOPHILS PERCENT MAN 0 % (0-2); EOSINOPHILS PERCENT MAN 0 % (0-6); LYMPHOCYTES PERCENT MAN 7 % (21-46); MONOCYTES ABSOLUTE MAN 0.25 K/mm3 (0.16-1.47); MONOCYTES PERCENT MAN 2 % (4-13); SEG NEUTROPHILS PERCENT MAN 81 % (41-73); TOTAL CELLS COUNTED 100
--- NOTE | 2020-09-07 18:06 | NUR ---
SUMMARY PT CONINUES WEAK/FATIGUED/LETHARGIC HOWEVER MENTATION CONTINUES TO IMPROVE. HE AROUSES EASIER, IS ABLE TO ANSWER QUESTIONS IN SENTENCES, HAS SPOKEN ON PHONE WITH HIS FRIEND MARLENA. HE IS ABLE TO HOLD A CUP & DRINK FROM IT TODAY, IMPROVED FROM PREVIOUS DAY HOWEVER HE CONTINUES TOO WEAK TO FEED HIMSELF, SWALLOW CONTINUES WEAK, REQUIRES VERBAL CUES TO SWALLOW & TAKE SM BITES/DRINKS @ X'S COUGHS/SPUTTERS. BLOOD SUGARS HAVE BEEN 155-192. DR STARTED IV NS @ 100 ML/HR D/T POOR INTAKE. IV VANCO CONTINUES R/T +BLOOD CX'S. HX CHR BACK PAIN, PRN TYLENOL & NORCO GIVEN FOR RELIEF. MINIMAL LOW GRADE FEVER THIS AM, 99.8, RESOLVED THIS AFTERNOON.
[2020-09-08 03:14] LABS: PCO2 Arterial 31.4 mmHg (35-45); PO2 Arterial 50.9 mmHg (80-100); pH Blood Arterial 7.53 (7.35-7.45)
--- NOTE | 2020-09-08 03:20 | NUR ---
SOMNOLENCE PT HAS BEEN LETHARGIC MOST OF THE SHIFT, SLEEPING ALL NIGHT AND NOT VERY RESPONSIVE TO STAFF. PT DID HOWEVER EASILY AWAKE TO VERBAL STIMULI AND WHEN ASKED WHAT YEAR IT WAS REPLIED THAT IT WAS 2019. SLOW TO RESPOND, BUT ANSWERED A LOT OF MY QUESTIONS APPROPRIATELY. HE DID NOT KNOW THE PRESIDENT OR WHERE HE WAS. PER DAYSHIFT RN REPORT AND REPORT FROM THE [facility] SHIFT RN WHO HAD PT THE NIGHT PRIOR. PT HAS BEEN LETHARGIC AND VERY SLEEPY WITH OFF AND ON CONFUSION, SO NO CHANGE FROM BASELINE. HOWEVER WITH AM VITALS PT IS MORE OBTUNDED. EXT ARE STIFF AND ARMS ARE BENT AT HIS SIDES. HE IS NOT RESPONDING TO COMMANDS AND NOT FOLLOWING DIRECTIONS THIS IS MORE OF A CHANGE FROM EARLIER ASSESSMENTS FROM BOTH PRIOR [facility] RN AND [facility]SS[facility]LA. WHEN ASKED A QUESTION HIS SPEECH IS NONSENSICAL AND SLIGHLY SLURRED. DR. ALLEN CALLED AND NOTIFIED OF PT SYMPTOMS. RECEIVED ORDER FOR ABG, AND HE STATES THAT HE WILL LOOK INTO PAITENT'S CHART. NO ADDITIONAL ORDERS GIVEN. ABG RESULTS WERE RECEIVED AND PT IS SLIGHLY HYPOXIC, 2L O2 PLACED. AWAITING FURTHER ORDERS FROM DR. ALLEN AT THIS TIME. WILL CONTINUE TO MONITOR.
--- NOTE | 2020-09-08 04:36 | NUR ---
DECREASED LOC FOLLOWED UP AGAIN WITH DR. ALLEN REGARDING PT DECREASED LOC. SEE PRIOR NOTE REGARDING THIS. HE REVIEWED PT ABG, AND WAS NOT CONCERNED WITH THE RESULTS RECEIVED. PT IS ON 2L AT THIS TIME FOR MILD HYPOXIA. I REITERATED THE WORSENING OF PT LOC AND INCREASED WEAKNESS, AND RIGID EXT MENTIONED IN MY PRIOR NOTE. MENTIONED PAITENT VITAL SIGNS WHICH ARE OTHERWISE WNL. HE IS AWARE OF PT POSITIVE BLOOD CULTURES AND CURRENT ANTIBIOTICS HE IS RECEIVING, AWARE THAT HE IS RECEIVING IVF AND THAT PT APPETITIE IS POOR. THERE HAS BEEN NO LACTIC ACID DRAWN ON PT SINCE ADMSSION AND I MENTIONED THAT TO DR. ALLEN. LACTIC ACID ORDERED, ALONG WITH BMP. MRI ALSO ORDERED. NO ADDITIONAL ORDERS AT THIS TIME. PT IS RESTING IN BED, APPEARS TO BE SLEEPING WITH NO S/S OF DISTRESS. WILL CONTINUE TO MONITOR.
--- NOTE | 2020-09-08 04:46 | NUR ---
DR. ALLEN TO PLACE ORDER FOR MRI.
--- NOTE | 2020-09-08 04:56 | NUR ---
SHIFT SUMMARY PT HAS SLEPT ALL SHIFT AND HAS BEEN SOMNOLENT WITH DECREASED LOC THAT THAT SEEMS TO BE PROGRESSING FROM WHERE HE WAS AT THE START OF THE SHIFT AND WITH PRIOR ASSESSMENTS. PT STILL OPENS EYES TO HIS VERBAL STIMULI AND RESPONDS "WHAT" WHEN NAME IS CALLED, BUT QUICKLY FALLS ASLEEP AND DOES NOT ANSWER MY QUESTIONS, SPEECH GARBLED AND INCOMPREHENSIBLE. PT UNABLE TO FOLLOW ANY COMMANDS. HOSPITALIST HAS BEEN NOTIFIED OF THIS AND ORDERS PLACED. PLEASE SEE PRIOR NURSES NOTES. PT NAYELI ESCOTO AWARE, OTHERWISE VITALS ARE STABLE. PT INCONTINENT OF URINE AND EXT STIFF AND RIGID. POOR PO INTAKE. ASPIRATION RISK DUE TO DECREASED LOC. IVF INFUSING ORDERED AND IV ANTIBIOTICS CONTINUED. BED IN LOWEST POSITON, CALL LIGHT WITHIN REACH.
[2020-09-08 05:11] LABS: Hematocrit 35.5 % (37.0-53.0); Hemoglobin 11.6 g/dL (13.5-17.5); Mean Corpuscular HGB 28.9 pg (26.0-34.0); Mean Corpuscular HGB Conc 32.7 g/dL (31.5-36.5); Mean Corpuscular Volume 89 fL (80-100); RDW Coefficient Variation 14.3 % (11.7-14.2); RDW Standard Deviation 46.2 fL (35.1-46.3); Red Blood Cell Count 4.01 M/mm3 (4.30-5.90); White Blood Cell Count 9.15 K/mm3 (4.00-11.30)
[2020-09-08 05:15] LABS: Mean Platelet Volume 14.3 fL (9.1-12.4); Platelet Count 93 K/mm3 (150-400)
[2020-09-08 05:38] LABS: BAND PERCENT MAN 12 % (0-8); BASOPHILS PERCENT MAN 0 % (0-2); EOSINOPHILS PERCENT MAN 0 % (0-6); LYMPHOCYTES ABSOLUTE MAN 0.18 K/mm3 (0.84-5.20); LYMPHOCYTES PERCENT MAN 2 % (21-46); MONOCYTES ABSOLUTE MAN 0.54 K/mm3 (0.16-1.47); MONOCYTES PERCENT MAN 6 % (4-13); NEUTROPHILS ABSOLUTE MAN 8.41 K/mm3 (1.96-9.15); SEG NEUTROPHILS PERCENT MAN 80 % (41-73); TOTAL CELLS COUNTED 100
[2020-09-08 05:42] LABS: Anion Gap 8 mmol/L (6-16); Blood Urea Nitrogen 29 mg/dL (8-24); CO2, Blood 25 mmol/L (21-32); Calcium, Blood 7.8 mg/dL (8.5-10.1); Chloride, Blood 115 mmol/L (98-108); Creatinine, Blood 0.71 mg/dL (0.60-1.20); Glomerular Filtration Rate >60 (60-); Glucose, Blood 166 mg/dL (70-99); Potassium, Blood 3.4 mmol/L (3.5-5.5); Sodium, Blood 148 mmol/L (136-145)
--- NOTE | 2020-09-08 05:44 | NUR ---
MRI CALLED TO CLARIFY IF DR. ALLEN WANTED TO ORDER A MRI IT HAD NOT YET BEEN ORDERED. STATES HE WILL LEAVE IT FOR DAYSHIFT ATTENDING HE IS NOT FULLY AWARE OF HEMANT'S CASE AND BACKGROUND INFORMATION. PT IS RESTING COMFORTABLY WITHOUT DISTRESS. LACTIC ACID IS WNL.
--- NOTE | 2020-09-08 08:18 | NUR ---
NOTIFIED HOSPITALIST NOTIFIED OF TACHYCARDIA IN THE 120'S, DROWSINESS, ABG RESULTS
[2020-09-09 02:02] LABS: BASOPHILS ABSOLUTE AUTO 0.03 K/mm3 (0.00-0.23); BASOPHILS PERCENT AUTO 0 % (0-2); Hematocrit 35.2 % (37.0-53.0); Hemoglobin 11.3 g/dL (13.5-17.5); LYMPHOCYTES ABSOLUTE AUTO 0.79 K/mm3 (0.84-5.20); LYMPHOCYTES PERCENT AUTO 8 % (21-46); MONOCYTES ABSOLUTE AUTO 0.48 K/mm3 (0.16-1.47); MONOCYTES PERCENT AUTO 5 % (4-13); Mean Corpuscular HGB 28.8 pg (26.0-34.0); Mean Corpuscular HGB Conc 32.1 g/dL (31.5-36.5); Mean Corpuscular Volume 90 fL (80-100); Mean Platelet Volume 12.4 fL (9.1-12.4); Platelet Count 146 K/mm3 (150-400); RDW Coefficient Variation 14.6 % (11.7-14.2); RDW Standard Deviation 47.8 fL (35.1-46.3); Red Blood Cell Count 3.93 M/mm3 (4.30-5.90); White Blood Cell Count 9.54 K/mm3 (4.00-11.30)
[2020-09-09 02:05] LABS: EOSINOPHILS ABSOLUTE AUTO 0.01 K/mm3 (0.00-0.68); EOSINOPHILS PERCENT AUTO 0 % (0-6); IMMATURE GRAN ABSOLUTE AUTO 0.07 K/mm3 (0.00-0.10); IMMATURE GRAN PERCENT AUTO 1 % (0-1); NEUTROPHILS ABSOLUTE AUTO 8.16 K/mm3 (1.96-9.15); NEUTROPHILS PERCENT AUTO 86 % (41-73)
[2020-09-09 02:06] LABS: PCO2 Arterial 27.6 mmHg (35-45); PO2 Arterial 45.9 mmHg (80-100); pH Blood Arterial 7.52 (7.35-7.45)
[2020-09-09 02:20] LABS: Alanine Aminotransfer (ALT/SGP 21 U/L (12-78); Albumin, Blood 1.6 g/dL (3.4-5.0); Albumin/Globulin Ratio 0.3 (0.8-1.8); Alk Phos 87 U/L (50-136); Anion Gap 8 mmol/L (6-16); Aspartate Aminotrans (AST/SGOT 49 U/L (12-37); Bilirubin, Total 1.4 mg/dL (0.1-1.0); Blood Urea Nitrogen 26 mg/dL (8-24); Bun/Creatinine Ratio 35.1 (12.0-20.0); CO2, Blood 25 mmol/L (21-32); Chloride, Blood 123 mmol/L (98-108); Creatinine, Blood 0.74 mg/dL (0.60-1.20); Globulin, Blood 4.8 g/dL (2.2-4.0); Glomerular Filtration Rate >60 (60-); Glucose, Blood 232 mg/dL (70-99); Potassium, Blood 3.3 mmol/L (3.5-5.5); Sodium, Blood 156 mmol/L (136-145); Total Protein, Blood 6.4 g/dL (6.4-8.2)
--- NOTE | 2020-09-09 03:44 | NUR ---
PT LETHARGIC T/O SHIFT. DIFFICULTY FOLLOWING COMMANDS, ABLE TO LOCALIZE PAIN. INCOHERENT SPEECH AND MOANING DURING REPOSITIONING. PT STARTED BEING TACHYPNEIC WITH RR AT 35 WITH 5L VIA NC, [address] CONRAD CONSULTED AND AT BEDSIDE TO ASSESS. STAT LABS, ABG AND CHEST XRAY COMPLETED. RT AT BEDSIDE TO SET UP AIRVO FOR PT WITH SATS INCREASING TO 95% CURRENTLY ON 1/2NS AT 200 PER NEW ORDERS. TRANSFER TO U-10. REPORT GIVEN TO DAYRON MATTHEWS
--- NOTE | 2020-09-09 04:00 | NUR ---
SHIFT SUMMARY PT TRANSFERRED TO UNIT DURING SHIFT. AGREE WITH PRIOR RN'S DOCUMENTATION ON SHIFT ASSESSMENT THAT WAS DONE AT BEGINNING OF SHIFT.
--- NOTE | 2020-09-09 04:30 | NUR ---
PT TRANSFER PT TRANSFERED TO UNIT FROM MEDICAL FLOOR. REPORT RECIEVED FROM ROSA DONAHUE RN. PT TRANSPORTED TO UNIT BY BED. VS STABLE AT THIS TIME.
--- NOTE | 2020-09-09 05:45 | NUR ---
SHIFT SUMMARY PT ARRIVED TO UNIT FROM MEDICAL FLOOR. PHYSICIAN NOTIFIED OF DIFFICULTY WITH TEMPERATURE CHECK D/T PT INABILITY TO DIRECT FOR ORAL TEMPERATURE AND RECTAL MASS FOR RECTAL TEMPERATURE. TEMPERATURE SHAW INSERTED PER PHYSICIAN ORDER. HR SINUS TACH. BP STABLE. OXYGEN SATURATION ABOVE 90% ON 50 L OF 02 AND 90% FIO2 ON AIRVOW. HEPARIN GTT RUNNING AT 15 U/KG/HR, VERIFIED WITH BYRON MASON. PT TURNED Q [address] ON L HIP AND COCCYX. PT LETHARGIC AT THIS TIME. BED ALARM IN PLACE. WILL CONTINUE TO MONITOR UNTIL REPORT GIVEN TO MANDY MATTHEWS.
[2020-09-09 07:52] LABS: Anion Gap 8 mmol/L (6-16); Blood Urea Nitrogen 26 mg/dL (8-24); Bun/Creatinine Ratio 34.8 (12.0-20.0); CO2, Blood 25 mmol/L (21-32); Calcium, Blood 8.1 mg/dL (8.5-10.1); Chloride, Blood 124 mmol/L (98-108); Creatinine, Blood 0.75 mg/dL (0.60-1.20); Glomerular Filtration Rate >60 (60-); Glucose, Blood 225 mg/dL (70-99); Potassium, Blood 3.7 mmol/L (3.5-5.5); Sodium, Blood 157 mmol/L (136-145)
[2020-09-09 09:21] LABS: Anion Gap 7 mmol/L (6-16); Blood Urea Nitrogen 25 mg/dL (8-24); Bun/Creatinine Ratio 33.1 (12.0-20.0); CO2, Blood 24 mmol/L (21-32); Calcium, Blood 7.9 mg/dL (8.5-10.1); Chloride, Blood 125 mmol/L (98-108); Creatinine, Blood 0.76 mg/dL (0.60-1.20); Glomerular Filtration Rate >60 (60-); Glucose, Blood 210 mg/dL (70-99); Potassium, Blood 3.5 mmol/L (3.5-5.5); Sodium, Blood 156 mmol/L (136-145)
--- NOTE | 2020-09-09 11:33 | NUR ---
Initial pal care visit - Pal care referral received this am. Pt has been hospitalized since 09/06/20, admitted with DKA, freq falls, weakness and FTH with a 40# wt loss over past months. He has a PMH of DM, neuropathy, diverticulitis and smoking. He was found to have a new rectal mass and large amount of stool load behind mass on admit. He had pos bld cultures, sepsis treated with antibiotics, developed confusion, dysphagia and declining respiratory/mentation status over the past 1-2 days. Pt is not able to have meaningful interactions per staff and Dr. He repeats that he wants to go home, doesn't want interventions and when I came in to see him was verbalizing, "OH God, Help me", repeatedly. When I asked if he was having pain he said, "god, yes, horrible pain". I repositioned pt for comfort with his nurse and he cried out, groaned and displayed other nonverbal indicators of severe pain. Pt responds well to hand on head and holding his hand for a few minutes. He responds to his name. He attempted to give me Julio's phone number but was unable to before drifting off. He is repeatedly pulling his airvo out of his nose. He allowed the mower operator to draw labs at this time. Update provided on my visit to pt's RN, propellant charge zone assembler and two drs caring for Harris. Dr's are speaking with pt's proxy, Julio, named by Harris, on admission to the hospital. Code status has been changed to DNR per 's conversatio with pt's proxy/roommate, Julio. Plan made for goals of care conference with Julio and another friend/roomate of pt's today when they are able to get here. Confirmed with pt's RN and screeners to allow to visitors when they get here by bus. RN to page me when friends arrive and we will notify also.
[2020-09-09 11:59] LABS: Anion Gap 5 mmol/L (6-16); Blood Urea Nitrogen 24 mg/dL (8-24); Bun/Creatinine Ratio 32.7 (12.0-20.0); CO2, Blood 24 mmol/L (21-32); Calcium, Blood 7.9 mg/dL (8.5-10.1); Chloride, Blood 126 mmol/L (98-108); Creatinine, Blood 0.74 mg/dL (0.60-1.20); Glomerular Filtration Rate >60 (60-); Glucose, Blood 134 mg/dL (70-99); Potassium, Blood 3.3 mmol/L (3.5-5.5); Sodium, Blood 155 mmol/L (136-145)
--- NOTE | 2020-09-09 13:19 | NUR ---
Ethics consult order received and processed. Case notes reviewed and discussed with palliative care. I confirmed that ORS 127.635 (2) provides clear statutory authorization for an incapacitated principal in a terminal state, who is bereft of known immediate family, to rely on an available adult proxy or friend to permit the discontinuation of aggressive medical therapy and make a hospice election on thier behalf. If such a course is pursued, the attending provider or hospitalist will submit attestation in the electronic health record verifying that the principal has a fatal disease, and that further treatment would be clinically non-beneficial or disproportionate in nature. Thank you for this consult. Lars Simons Th.D.
--- NOTE | 2020-09-09 14:16 | NUR ---
Palliative Care visit and follow up for s/s management. Goals of care and decision making discussed with pt's proxy, Julio, who arrived for our planned meeting with . Julio states he is comfortable with and accepts the proxy medical decision maker assignment by Harris. gave complete update and Julio's questions were answered. He would like to continue with current tx at this time. He understands that Harris may decline further despite full care and efforts to tx his current multiple medical issues. If Harris' medical status declines further Julio is agreeable with transitioning the focus of care to comfort care. Harris was able to acknowledge that he knew Julio was there. He continues to exhibit multiple nonverbal indicators of severe pain, especially with any attempt to reposition a limb or him in bed. He has his O2 off and biox reading 91% on RA currently. When I asked Harris if I could replace nasal canula he said no and moved his head away from my hands. Julio aware that to keep O2 on we would have to restrain Harris and he does not meet criteria for restraining to allow tx at this time. He is able to consent or decline tx. Pt appears acutely uncomfortable and ill. He is very weak with poor cough or clearing abilities. He is not taking in fluids and food at this time. discussed aspiration that most likely occurred in the last 24 hours and that Harris is very high risk for that happening again due to weakness and declining alertness/mentation. During our visit, I noted increased resp rate of 28-36/min. He had HR 114-116. Discussed indicators and s/s we are seeing and explained them to Julio. Discussed starting low dose of Roxanol 5-10 mg SL q4hrs prn mod-severe pain and air hunger. VO given and entered after visit and reported to hot car charger. Plan to visit daily to support and assist with s/s management and advanced care planning. Julio plans to call another friend of pt, Candi, to update and discuss our care conference.
--- NOTE | 2020-09-09 19:25 | NUR ---
NO ACUTE EVENTS THIS SHIFT. PATIENT STARTED ON AERVO, KEPT PULLING OFF O2 AND REMAINED STABLE IN LOW TO MID 90S ON ROOM AIR. PATIENT UNABLE TO ANSWER ORIENTATION QUESTIONS TODAY, SOMETIMES REDIRECTABLE BUT MOSTLY UNABLE TO FOLLOW COMMANDS. PATIENT'S BLOOD SUGAR MAINTAINED IN LOW 100S THIS SHIFT. CONFERENCE WITH ETHICS, PALLIATIVE, AND ATTENDING PHYSICIANS OCCURED THIS SHIFT WITH PATIENT'S HEALTHCARE PROXY NAMED AT ADMISSION, MARLENA. FROM DISCUSSION, PATIENT'S CODE STATUS CHANGED TO DNR. TEMP SHAW IN USE FOR ACCURATE TEMP, PATIENT HAD TERMPERATURE OF 101.1 DEGREES FOR LARGE PART OF SHIFT. PATIENT REPOSITIONED WITH PILLOWS T/O SHIFT, TYLENOL GIVEN BY SUPPOSITORY AND APPEARED TO IMPROVE PATIENT'S DISCOMFORT.
--- NOTE | 2020-09-09 21:00 | NUR ---
PROVIDER 2030 PT CONVERTS TO AFIB RVR 190'S, WITH DECREASING BP (80SBP). PT STILL ENCEPHALOPATHIC BUT SOMEWHAT ALERT, DIFFICULT TO TELL IF PT SYMPTOMATIC. SHOWING SOME SWAETINESS BUT THIS WAS PRESENT BEFORE. ERIN Oscar CALLED, UPDATED. EKG ORDER PLACED AND COMPLETED. AWAITING PHYSICIAN TO COME AND SEE PT FOR FURTHER ORDERS.
--- NOTE | 2020-09-09 21:24 | NUR ---
PROVIDER ERIN Oscar TO ROOM TO ASSESS PT. UPDATED ON CONDITION. PREVIOUS TESTS. PROVIDER NOTES. DR REVIEWING. LAB ORDERS PLACED. 1LNS BOLUS PLACED WO. AMIODARONE BOLUS ORDERED.
[2020-09-09 21:51] LABS: Magnesium, Blood 2.9 mg/dL (1.6-2.4); Troponin I 0.046 ng/mL (0.000-0.040)
[2020-09-09 21:58] LABS: Anion Gap 9 mmol/L (6-16); Blood Urea Nitrogen 25 mg/dL (8-24); Bun/Creatinine Ratio 29.8 (12.0-20.0); CO2, Blood 23 mmol/L (21-32); Calcium, Blood 8.5 mg/dL (8.5-10.1); Chloride, Blood 125 mmol/L (98-108); Creatinine, Blood 0.84 mg/dL (0.60-1.20); Glomerular Filtration Rate >60 (60-); Glucose, Blood 205 mg/dL (70-99); Potassium, Blood 3.8 mmol/L (3.5-5.5); Sodium, Blood 157 mmol/L (136-145)
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
--- NOTE | 2020-09-10 09:23 | NUR ---
Brief visit to pt in PCU. He was sleeping. His resp effort appears improved and pt sleeping without the extreme restless noted yesterday at present. No visitors in room. Case conferenced with this am. Pt with improved stability this am although still guarded status with multiple competing medical concerns. to start some IV nutrition this am. Pal Care to remain available for support and advanced care planning.
--- NOTE | 2020-09-10 11:00 | NUR ---
Second Pal Care visit this am. Pt's RN called to report pt with increasing agitation, restlessness, anxiety and painful behavious, with flailing of arms and arching back, trying to swing legs over side of bed. Reported above to and called both pt's listed friends to report and pass on recommendation for comfort care from drs. Christopher in favor of comfort care and feels this is what Harris would have wanted. I was unable to reach pt's proxy, Julio this am. I confirmed with Candi that I have the correct number and that he is using Harris' phone. VM left for him requesting call back EMILIANO. Candi states they will both be in later once they can obtain bus/ride to hospital. Report given to pt's nurses and Order obtained for increase in frequence of Roxanol to 5-10 mg q2h SL, prn. Roxanol was helpful earlier this am in alleviating s/s and allowing pt to rest, unagitated. RN updated on new order.
--- NOTE | 2020-09-10 11:07 | NUR ---
ASSUMED CARE FROM NOC RN, MORNING UPDATE PT WAS RESTING IN BED AT THE TIME OF REPORT. PT GROANS IN DISCOMFORT WHEN REPOSITIONED AND APPEARS RESTLESS THIS MORNING. VS STABLE; PT ON RA AND MAINTAINING SAT ABOVE 92%. PALLIATIVE CARE HAS BEEN INVOLVED THE PT MENTAL AND PHYSICAL STATUS IS DETERIORATING. PT IS CONFUSED AND UNABLE TO ANSWER QUESTIONS THIS MORNING. SHAW IN PLACE AND DRAINING. PT RESTING IN BED AT THIS TIME
--- NOTE | 2020-09-10 16:45 | NUR ---
Third visit today. RN contacted me to say that proxy, Julio wanted pt on comfort care but wanted to continue fluids and some other treatments. I was reviewing this in detail with Julio and Candi. During visit pt required repositioning and in a three person assisted bed reposition, pt demonstrated experiencing severe pain with minimal repositioning and touch. We resumed discussion and Dr arrived to discuss further goals of care further. After a prolonged discussion, Julio was agreeable to comfort care. VO Comfort care orders confirmed with Dr and entered. Update given to RN on specific orders to be d/c'd and new orders entered.
--- NOTE | 2020-09-10 17:07 | NUR ---
COMFORT CARE DISCUSSION PT'S FRIENDS AND PROXY MARLENA AND JAMIN WERE VISITING THIS AFTERNOON TO DISCUSS COMFORT CARE. AFTER SPEAKING WITH THE DOCTOR AND PALLIATIVE CARE THEY DECIDED TO THINK ABOUT THEIR DECISION. AFTER THE CONFERENCE; BYRON CARDONA SPOKE WITH MARLENA AND JAMIN AND THEY DETERMINED THEY WOULD LIKE THE PT TO REMAIN ON FLUIDS TO PREVENT "DEHYDRATION" AND TO GO ON COMFORT CARE. I EXPLAINED THAT FLUIDS IN THE LONG RUN COULD MAKE THE PT MORE UNCOMFORTABLE AND AT THIS POINT IT WOULD BE FOR THE PEACE OF MIND FOR [place]. I REPORTED THIS TO DR. Laura CURIEL AND DANIE FROM PALLIATIVE CARE WHO RETURNED FOR A SECOND CONFERENCE WITH THE FRIENDS/PROXIES. ULTIMATELY IT WAS DECIDED TO PLACE THE PT ON COMFORT CARE
--- NOTE | 2020-09-10 18:05 | NUR ---
SHIFT SUMMARY PT IS NOW ON COMFORT CARE, DECISION MADE THIS AFTERNOON BY HEALTH CARE PROXY MARLENA AND FRIEND JAMIN. PALLIATIVE CARE RN, DANIE AND DR. Laura CURIEL WERE ABLE TO AID IN THE DECISION. PT HAS BEEN RECEIVING MORPHINE FOR DISCOMFORT, PAIN AND AIR HUNGER. PT HAS ALSO RECEIVED ATROPINE SL FOR SECREATIONS. PT HAS BEEN READJUSTED AND IS RESTING IN BED AT THIS TIME
--- NOTE | 2020-09-10 19:06 | NUR ---
COMFORT CARE VISIT - Pt is resting more comfortably with administration of Roxanol around 1800. Kohler cath with dk yellow urine in drainage bag. Pt opens his eyes occassionally to his name or in repsonse to his friends' voices when they were visiting. He will hold on to my hand for an extended period of time, even if he does not appear awake. Nonverbal extreme pain indicating behaviors noted t/o the day, especially with any attempt to reposition pt. Harris has a weak congested cough. He is not communicating with staff at this time or requesting anything. He is much less agitated, restless and distressed than he was this am with the increase in frequency of Roxanol dosing provided today. Will reassess for s/s in am and report to Julio.
--- NOTE | 2020-09-11 05:23 | NUR ---
SHIFT SUMMARY NO ACUTE CHANGES THIS SHIFT. PT ON CC. PT HASA BEEN SLEEPING FOR MAJORITY OF SHIFT. HAS REQUIRED ONE DOSE OF ORAL ROXICODONE. ORAL CARE COMPLETED PT ALLOWS, PT TENDS TO CLENCH TEETH WHEN ATTEMPTING. SHAW PATENT AND DRAINING. PT REPOSITIONED A FEW TIMES THIS SHIFT TO HELP PREVENT RIGIDITY BUT OTHERWISE, STAFF HAS LEFT PT TO REST. FLACC SCORES REMAINS MINIMAL POST ROXICODONE ADMINISTRATION. WILL CONTINUE TO MONITOR UNTIL SHIFT CHANGE.
--- NOTE | 2020-09-11 07:56 | NUR ---
AM ASSESSMENT- PT LYING IN BED, OPENS EYES TO VERBAL STIMULI BUT DOES NOT VERBALLY RESPOND. LS CLEAR, ON RA. HR TACHY. LEFT ARM NOTED TO BE VERY SWOLLEN, IV IN PLACE DC'D AT THIS TIME. ARM ELEVATED ON PILLOW. MOTTLING NOTED TO BILAT KNEES. HEEL PROTECTORS IN PLACE. SHAW IN PLACE WITH MINIMAL OUTPUT DRAINING ZACKARY URINE. DNR WRISTBAND TO LEFT WRIST. PT COMFORT CARE STATUS. PT REPOSITIONED AT THIS TIME, PT NOTED TO GRIMACE WITH REPOSITIONING, PRN ROXANOL GIVEN AT THIS TIME. WILL CONT TO MONITOR.
--- NOTE | 2020-09-11 09:33 | NUR ---
Comfort care visit. Pt woke when I placed my hand on his shoulder and said his name. He did not try to talk. He appears sl anxious but much less so and much less nonverbal behavious noted since yesterday afternoon. No urine noted in farfan drainage bag, just emptied at shift change 1-2 hours ago. Left arm less swollen and RN states periph IV removed from that arm. I called both Candi and Julio to let them know current status and that pt has been moved to 301 this am. Let them know that they could visit earlier in the day if they would like and that Harris may appreciate familiar faces and voices in his room.
--- NOTE | 2020-09-11 16:14 | NUR ---
SHIFT SUMMARY- PT ON COMFORT CARE. PT AWAKES TO VERBAL STIMULI, PT DOES NOT RESPBOND VERBALLY BUT ATTEMPTED TO SAY A FEW WORDS BUT NOT STRONG ENOUGH TO GET IT OUT. LS CLEAR, ON RA. HR TACHY. SHAW WITH APROX 50ML URINE OUTPUT T/O THE DAY. PT GRIMACES WITH MOVEMENT ONLY, PRN ROXANOL GIVEN. PT APPEARS COMFORTABLE WHEN LYING IN BED. SOME MOTTLING NOTED TO BILAT KNEES. HEEL PROTECTORS IN PLACE. LEFT ARM SWOLLEN AND ELEVATED. MEPILEX TO COCCYX AND LEFT HIP C/D/I. FRIEND TO COME IN THIS EVENING TO SEE PT. NO OTHER ACUTE CHANGES THIS SHIFT.
--- NOTE | 2020-09-11 17:57 | NUR ---
Spiritual care note: Mr. Olvera appeared to be sleeping soundly when I visited. He opens eyes to voice, but quickly closes them. He did not engage with me at all. Per chart, he is listed as "Judaism." I prayed for a peaceful transition. [facility] Preparer services will remain available.
--- NOTE | 2020-09-12 04:06 | NUR ---
SHIFT SUMMARY PT HAS RESTED FOR MOST OF THE NIGHT. PT OPENS HIS EYES WHEN NAME IS CALLED AND SQUEEZES HANDS BUT OTHERWISE DOES NOT COMMUNICATE, AND QUICKLY FALLS BACK TO SLEEP. SHAW IN PLACE WITH ADEQUATE AMOUNT OF OUTPUT THIS SHIFT. NO CALLS OR VISITS FROM PT FAMILY OR FRIENDS THIS SHIFT. BED IN LOWEST POSITION, CALL LIGHT WITHIN REACH.
--- NOTE | 2020-09-12 17:45 | NUR ---
END OF LIFE NOTE PATIENT PASSED AT 1730. CONFIRMED BY OSCOLTATION AND CONFIRMED WITH ROLY LAWSON RN. CHARGE NURSE SHANEKA SPENCER AND DR BLANCO NOTIFIED. PALLIATIVE CARE NOTIFIED WITH MARIE LISA TO CALL FAMILY FRIENDS.
--- NOTE | 2020-09-12 18:03 | NUR ---
Spoke with his friend Jessica and nadiya today. Jessica came in to see him. Reviewed funneral plans with Jessica. Her and nadiya do not have funds to help. Jessica came in to see pt. He not to long after she left. Jessica belives he has money in his account. Notified Nursing shelter supervisor and floor nurse will notify funneral home.
== END 2020-09-12 17:30 | DRG 871 ==
LOC: ER 16:16 → ICUW 16:17 → MEDS 09-05 14:32 → PCU 09-06 10:10 → MEDS 09-06 23:17 → PCU 09-09 03:33 → MEDS 09-11 06:35
PROVIDERS: Hospitalist; Internal Medicine; Nurse Practitioner Acute Care; Physician Assistant; Student in an Organized Health Care Education/Training Program; ADMIT Internal Medicine
DX: A41.01 Sepsis due to Methicillin susceptible Staphylococcus aureus (principal); E11.10 Type 2 diabetes mellitus with ketoacidosis without coma; E43 Unspecified severe protein-calorie malnutrition; G92 Toxic encephalopathy; J69.0 Pneumonitis due to inhalation of food and vomit; J96.01 Acute respiratory failure with hypoxia; R65.20 Severe sepsis without septic shock; E87.0 Hyperosmolality and hypernatremia; F32.2 Major depressive disorder, single episode, severe without psychotic features; Z68.1 Body mass index [BMI] 19.9 or less, adult; E87.2 Acidosis; Z20.828 Contact with and (suspected) exposure to other viral communicable diseases; Z51.5 Encounter for palliative care; Z66 Do not resuscitate; E86.0 Dehydration; F17.210 Nicotine dependence, cigarettes, uncomplicated; G62.9 Polyneuropathy, unspecified; I48.91 Unspecified atrial fibrillation; W19.XXXA Unspecified fall, initial encounter; E87.6 Hypokalemia; Z91.81 History of falling
CPT/HCPCS: 0202U; 36415; 36600; 70450; 71045; 71260; 74177; 80048; 80053; 81001; 82010; 82330; 82803; 82947; 83036; 83605; 83690; 83735; 84100; 84145; 84443; 84484; 85007; 85025; 85027; 85651; 86140; 87040; 87077; 87147; 87186; 93005; 93010; 93306; 94762; 96360-59; 96361; 96372; 99285-25; A9270; G0378; J0690; J0696; J1644; J1650; J1815; J3370; J3480; J7030; J7042; J7050; J7120; Q9967